=== PATIENT | female | born 1965 | race Caucasian/White ===

== ENCOUNTER → 2017-06-04 | Outpatient (REF) ==
[~2017-06-04] MED LIST: HCTZ 25MG TAB25 MG PO; NORCO 325 MG-51 TAB PO; SYNTHROID0.088 MG/T PO; TOPROL XL100 MG PO
== END ==
LOC: ZLAB.WCH 18:05
DX: Z01.89 Encounter for other specified special examinations (principal)

== ENCOUNTER → 2017-10-10 | Outpatient (REF) | LOC: ZLAB.WCH 16:04 | DX: Z01.89 Encounter for other specified special examinations (principal) ==